=== PATIENT | female | born 1970 | race Caucasian/White ===

== ENCOUNTER 2021-07-23 19:17 | Emergency (ER) | payer SELFPAY ==
[~2021-07-23] VITALS: Ht 165 cm; Wt 180.0 kg
[2021-07-23] MEDS ORDERED: ACYCLOVIR 400 MG TABLET (ZOVIRAX) PO STA (19:28)
[2021-07-23] MEDS ORDERED: cloNIDine 0.1 MG (CATAPRES) TAB PO ONE (19:30)
[2021-07-23] MEDS ORDERED: ASPIRIN 81 MG CHEW (CHILDREN'S ASA) PO ONE (19:30)
--- NOTE | 2021-07-23 19:33 | ED Cardiac General ---
History of Present Illness General Chief Complaint: Chest Pain Stated Complaint: CP, R SIDED PAIN Source: patient Exam Limitations: no limitations History of Present Illness Date Seen by Provider: Jul 23, 2021 Time Seen by Provider: 19:23 Initial Comments To ER with chest pressure left-sided chest pain and high blood pressure. States that she is supposed to be on some medication for diabetes and hypertension. No history of coronary disease. She just moved here from [place] where she was homeless. She has been here for about 1 week living with her niece. She reports a history of congestive heart failure. No fever no chills no cough no shortness of breath. No nausea no vomiting. Timing/Duration: changing over time Severity: moderate NTG SL [employer]: No ASA po [employer]: No Associated Systoms: Headaches Allergies and Home Medications Allergies Coded Allergies: No Known Drug Allergies (Unverified , 07/23/21) Patient Home Medication List Home Medication List Reviewed: Yes Review of Systems Review of Systems Constitutional: see HPI; No chills, No dizziness, No fever EENTM: No Symptoms Reported Respiratory: No Symptoms Reported Cardiovascular: See HPI, Chest Pain Gastrointestinal: No Symptoms Reported Genitourinary: No Symptoms Reported Musculoskeletal: no symptoms reported Skin: no symptoms reported Psychiatric/Neurological: No Symptoms Reported Endocrine: No Symptoms Reported Hematologic/Lymphatic: No Symptoms Reported Physical Exam Vital Signs Vital Signs - First Documented 07/23/21 19:20 Temp 36.2 Pulse 81 Resp 18 B/P (MAP) 212/130 (157) Pulse Ox 95 O2 Delivery Room Air Capillary Refill : Height, Weight, BMI Height: '" Weight: lbs. oz. kg; BMI Method: General Appearance: No Apparent Distress, WD/WN, Obese, Other (Alert and oriented very pleasant no distress. Heart rate 76 sinus blood pressure 212/130 oxygen 94% room air.) Neck: Full Range of Motion, Normal Inspection Respiratory: No Accessory Muscle Use, No Respiratory Distress Cardiovascular: Regular Rate, Rhythm, Normal Peripheral Pulses Gastrointestinal: Normal Bowel Sounds, Non Tender, Soft Extremity: Normal Capillary Refill, Normal Inspection Neurologic/Psychiatric: Alert, Oriented x3 Skin: Normal Color, Warm/Dry Progress/Results/Core Measures Results/Orders Lab Results Laboratory Tests Test 07/23/21 19:29 Range/Units White Blood Count 9.7 4.3-11.0 10^3/uL Red Blood Count 5.58 H 3.80-5.11 10^6/uL Hemoglobin 16.0 11.5-16.0 g/dL Hematocrit 48 35-52 % Mean Corpuscular Volume 86 80-99 fL Mean Corpuscular Hemoglobin 29 25-34 pg Mean Corpuscular Hemoglobin Concent 33 32-36 g/dL Red Cell Distribution Width 12.6 10.0-14.5 % Platelet Count 359 130-400 10^3/uL Mean Platelet Volume 9.1 9.0-12.2 fL Immature Granulocyte % (Auto) 1 % Neutrophils (%) (Auto) 52 42-75 % Lymphocytes (%) (Auto) 41 12-44 % Monocytes (%) (Auto) 5 0-12 % Eosinophils (%) (Auto) 1 0-10 % Basophils (%) (Auto) 1 0-10 % Neutrophils # (Auto) 5.0 1.8-7.8 10^3/uL Lymphocytes # (Auto) 3.9 1.0-4.0 10^3/uL Monocytes # (Auto) 0.5 0.0-1.0 10^3/uL Eosinophils # (Auto) 0.1 0.0-0.3 10^3/uL Basophils # (Auto) 0.1 0.0-0.1 10^3/uL Immature Granulocyte # (Auto) 0.1 0.0-0.1 10^3/uL Prothrombin Time 13.2 12.2-14.7 SEC INR Comment 1.0 0.8-1.4 Activated Partial Thromboplast Time 32 24-35 SEC D-Dimer < 0.27 0.00-0.49 UG/ML Sodium Level 139 135-145 MMOL/L Potassium Level 3.6 3.6-5.0 MMOL/L Chloride Level 101 98-107 MMOL/L Carbon Dioxide Level 24 21-32 MMOL/L Anion Gap 14 5-14 MMOL/L Blood Urea Nitrogen 7 7-18 MG/DL Creatinine 0.77 0.60-1.30 MG/DL Estimat Glomerular Filtration Rate 79 BUN/Creatinine Ratio 9 Glucose Level 125 H 70-105 MG/DL Calcium Level 9.9 8.5-10.1 MG/DL Corrected Calcium 9.5 8.5-10.1 MG/DL Magnesium Level 2.1 1.6-2.4 MG/DL Total Bilirubin 0.8 0.1-1.0 MG/DL Aspartate Amino Transf (AST/SGOT) 22 5-34 U/L Alanine Aminotransferase (ALT/SGPT) 32 0-55 U/L Alkaline Phosphatase 75 40-136 U/L Myoglobin 36.0 10.0-92.0 NG/ML Troponin I < 0.028 <0.028 NG/ML Total Protein 8.0 6.4-8.2 GM/DL Albumin 4.5 3.2-4.5 GM/DL My Orders Orders - KELSEY ARRINGTON APRN Cbc With Automated Diff (07/23/21) Magnesium (07/23/21) Chest 1 View, Ap/Pa Only (07/23/21) Ekg Tracing (07/23/21) Comprehensive Metabolic Panel (07/23/21) Myoglobin Serum (07/23/21) Protime With Inr (07/23/21) Partial Thromboplastin Time (07/23/21) O2 (07/23/21) Monitor-Rhythm Ecg Trace Only (07/23/21) Lipid Panel (07/24/21 06:00) Ed Iv/Invasive Line Start (07/23/21:) BNP (07/23/21) Fibrin Degradation Products (07/23/21) Aspirin Chewable Tablet (Baby Aspirin Ch (07/23/21:30) Clonidine Tablet (Catapres Tablet) (07/23/21:30) Hemoglobin A1c (07/23/21:) Troponin I (07/23/21:) Medications Given in ED Current Medications Medications Dose Ordered Sig/Chris Route Start Time Stop Time Status Last Admin Dose Admin Aspirin 324 mg ONCE ONCE PO 07/23/21 19:30 07/23/21 19:31 DC 07/23/21 19:34 324 MG Clonidine HCl 0.2 mg ONCE ONCE PO 07/23/21 19:30 07/23/21 19:31 DC 07/23/21 19:34 0.2 MG Vital Signs/I&O 07/23/21 19:20 Temp 36.2 Pulse 81 Resp 18 B/P (MAP) 212/130 (157) Pulse Ox 95 O2 Delivery Room Air Departure Communication (Admissions) 2031-her troponin is negative despite continuous pain for 24 hours. We will start her on some lisinopril and have her follow-up with primary care. Impression Primary Impression: Hypertension Disposition: HOME, SELF-CARE Condition: Stable Departure-Patient Inst. Decision time for Depature: 20:33 Referrals: DONTRELL AGUIRRE BETHANY N MD GAULT,ERNST DUARTE,BAYRON MARTINEZ,LOCAL PHYSICIAN (PCP) Primary Care Physician Patient Instructions: High Blood Pressure ED Add. Discharge Instructions: 1. Return to ER for any concerns 2. Follow-up with your doctor next week 3. All discharge instructions reviewed with patient and/or family. Voiced understanding. Scripts Lisinopril (Lisinopril) 10 Mg Tablet 10 MG PO DAILY, #20 TAB Prov: KELSEY ARRINGTON APRN 07/23/21 KELSEY ARRINGTON APRN Jul 23, 2021 19:33
[2021-07-23 19:43] LABS: BASOPHILS # (AUTO) 0.1 10^3/uL (0.0-0.1); BASOPHILS % (AUTO) 1 % (0-10); EOSINOPHILS # (AUTO) 0.1 10^3/uL (0.0-0.3); EOSINOPHILS % (AUTO) 1 % (0-10); HEMATOCRIT 48 % (35-52); LYMPHOCYTES # (AUTO) 3.9 10^3/uL (1.0-4.0); LYMPHOCYTES % (AUTO) 41 % (12-44); MEAN CORPUSCULAR HEMOGLOBIN 29 pg (25-34); MEAN CORPUSCULAR HGB CONC 33 g/dL (32-36); MEAN CORPUSCULAR VOLUME 86 fL (80-99); MEAN PLATELET VOLUME 9.1 fL (9.0-12.2); MONOCYTES # (AUTO) 0.5 10^3/uL (0.0-1.0); MONOCYTES % (AUTO) 5 % (0-12); NEUTROPHILS % (AUTO) 52 % (42-75); PLATELET COUNT 359 10^3/uL (130-400); WHITE BLOOD COUNT 9.7 10^3/uL (4.3-11.0)
--- NOTE | 2021-07-23 19:48 | Diagnostic Imaging Report ---
EXAMINATION: Chest 1 view. HISTORY: Chest pain. COMPARISON: None available. FINDINGS: The lung volumes are normal. No focal consolidation is seen. No large pleural effusion or pneumothorax is seen. The cardiomediastinal silhouette is normal in size and contour. No acute osseous abnormality is seen. IMPRESSION: No acute pleuroparenchymal process. Dictated by: Dictated on workstation # [id number]
[2021-07-23 19:49] LABS: PROTHROMBIN TIME PATIENT 13.2 SEC (12.2-14.7)
[2021-07-23 20:07] LABS: ALANINE AMINOTRANSFERASE 32 U/L (0-55); ALBUMIN 4.5 GM/DL (3.2-4.5); ALKALINE PHOSPHATASE 75 U/L (40-136); BILIRUBIN,TOTAL 0.8 MG/DL (0.1-1.0); BUN/CREATININE RATIO 9; CALCIUM 9.9 MG/DL (8.5-10.1); CARBON DIOXIDE 24 MMOL/L (21-32); CHLORIDE 101 MMOL/L (98-107); CREATININE SERUM 0.77 MG/DL (0.60-1.30); GFR ESTIMATED 79; GLUCOSE 125 MG/DL (70-105); MAGNESIUM 2.1 MG/DL (1.6-2.4); POTASSIUM 3.6 MMOL/L (3.6-5.0); SODIUM 139 MMOL/L (135-145)
[2021-07-23] MEDS ORDERED: LISI10TA25 PO (20:35)
[2021-07-23] MEDS ORDERED: lisINopril 10 MG (PRINIVIL) TABLET PO ONE (20:45)
[2021-07-23 20:48] VITALS: BP 174/104
== END 2021-07-23 20:48 | disposition home or self-care (01) ==
LOC: ER 19:21
DX: I11.0 Hypertensive heart disease with heart failure (principal); I50.9 Heart failure, unspecified; E66.9 Obesity, unspecified; E11.9 Type 2 diabetes mellitus without complications
CPT/HCPCS: 36415; 71045; 80053; 83036; 83735; 83874; 83880; 84484; 85025; 85379; 85610; 85730; 93005; 93041